=== PATIENT | female | born 1995 | race African-American/Black ===

== ENCOUNTER 2018-04-01 22:53 | Emergency (ER) | payer BC, SELFPAY ==
[2018-04-01 23:00] VITALS: BP 116/72; PULSE 107; RESP 18; TEMP 36.8; O2SAT 98
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
[2018-04-01] MEDS: Ibuprofen 600 MG TAB PO (23:24)
== END 2018-04-01 23:41 | disposition home or self-care (01) ==
PROVIDERS: Emergency Provider Emergency Medicine
DX: S09.90XA Unspecified injury of head, initial encounter (principal); W22.8XXA Striking against or struck by other objects, initial encounter; Y93.83 Activity, rough housing and horseplay; R51 Headache
CPT/HCPCS: 99283

== ENCOUNTER 2018-04-08 14:35 | Emergency (ER) | payer BC, SELFPAY ==
[2018-04-08 14:37] VITALS: BP 122/72; PULSE 98; RESP 18; TEMP 36.6; O2SAT 99
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
[2018-04-08 15:43] LABS: Abs Immature Grans 0.01 k/cumm (0.0-0.09); HCT 33.2 % (36.0-46.0); HGB 10.1 g/dL (12.0-15.5); Immature Grans % 0.1; Mean Corp. HGB Concentration 30.4 g/dL (32.0-36.0); Mean Platelet Volume 11.7 fL (8.0-11.0); RBC Distribution Width 16.4 % (11.7-14.6)
[2018-04-08 15:45] LABS: *AMPHETAMINES SCREEN URINE Negative (Negative); *BARBITURATES SCREEN URINE Negative (Negative); *BENZODIAZEPINES SCREEN URINE Negative (Negative); Cannabinoids THC POSITIVE (Negative); Cocaine Screen,Urine Negative (Negative); METHADONE URINE SCREEN Negative (Negative); OPIATES URINE SCREEN Negative (Negative)
[2018-04-08 15:46] LABS: Tricyclic Antidepressants Negative (Negative)
[2018-04-08 15:59] LABS: Acetaminophen < 2 ug/mL (10-30); Salicylate < 2.8 mg/dL (2.8-20.0)
[2018-04-08 16:04] LABS: ALT 14 U/L (12-78); AST 21 U/L (15-37); Albumin 4.3 g/dL (3.4-5.0); Alkaline Phosphatase 40 U/L (46-116); Anion Gap 9.8 mmol/L (3-11); BUN 14 mg/dL (7-18); Bilirubin, Total 1.6 mg/dL (0.2-1.0); CO2 20.2 mmol/L (21.0-32.0); CREATININE 1.05 mg/dL (0.55-1.02); Calcium 9.4 mg/dL (8.5-10.1); Chloride 105 mmol/L (98-107); Glucose 100 mg/dL (70-100); Magnesium 1.9 mg/dL (1.8-2.4); Potassium 3.6 mmol/L (3.5-5.1); Sodium 135 mmol/L (136-145); Total Protein 8.5 g/dL (6.4-8.2)
[2018-04-08 16:07] LABS: Absolute Basophil Count 0.04 k/cumm (0.0-0.2); Absolute Eosinophil Count 0.01 k/cumm (0.0-0.7); Absolute Lymphocyte Count 1.55 k/cumm (1.2-3.4); Absolute Monocyte Count 0.45 k/cumm (0.11-0.7); Absolute Neutrophil Count 6.02 k/cumm (1.2-6.7); Basophils % 0.5; Eosinophils % 0.1; Lymphocytes % 19.2; Mean Corpuscular Hemoglobin 20.2 pg (27.0-33.0); Mean Corpuscular Volume 66.5 fL (80-95); Monocytes % 5.6; Neutrophils % 74.5; Platelet Count 264 x1000/uL (130-400); RBC 4.99 m/cumm (4.00-5.20); White Blood Cell Count 8.08 k/cumm (4.4-10.8)
--- NOTE | 2018-04-08 16:14 | ERMH_ITS ---
Presenting issue: [] *How did they arrive here at ER and why did they come: [Clt arrived at the ER because she had a panic attack coupled with cutting behavior, which resulted in the clt having a number of superficial cuts going up the length of her left forearm.] Precipitating Factors: [] *Assessment of Safety SI / HI- (Address delusions if pertaining to the SI/ HI) [Clt denies any SI or HI. The clt appeared to have an almost borderline disassociation experience where she felt outside of herself when she did the cutting. She said that her depression started about a week ago and steadily got worse. She said that she came back to the college because of her boyfriend that she feels is unsupportive. Her other friends have left for other colleges leaving her with a feeling isolation. ] Disposition: [] *Behavior: [Cooperative] *Eye Contact: [Good] *Mood: [Pleasant] *Affect: [Normal ] *Appetite: [fair] *Sleep (trouble falling/staying asleep): [Clt did not complain about any issues with her sleep.] Plan: (please elaborate and include that physician is consulted with plan and/ or placement): [The clt and I discussed the clt's experience and I strongly recommended that she follow up with [facility] mental health services to help process the experience. Clt will refrain from any further cutting. The clt does have the [facility] Emergency number should the cutting impulses reemerge. ] Provisional Diagnosis:(only if required by physician): [] AXIS 5 Case Handover: Done with ED nurse (name): [] Date & Time [] Huddle: done with ED staff (for ?boarding? clients): [] Yes [] No Date /Time [] Referral for Case management: Has phone call for introduction been made [] Yes [] No Referral in EMR: Done and sent? [] Yes [] NO Clinicians Name and title and Signature: [] Make sure that you are photocopying and submitting this to [facility] records dept.to be scanned into chart
[2018-04-08 16:15] LABS: TSH (W/Ref FT4) 0.98 uIU/mL (0.358-3.74)
[2018-04-08 16:22] LABS: ETHANOL BLOOD < 3.0 mg/dL (<3)
[2018-04-08 16:31] LABS: Anisocytosis 2+; Diff Comment RBC Morph Reviewed; Hypochromasia 2+; Microcytosis 3+; Ovalocytes 2+
[2018-04-08 16:47] LABS: Bilirubin Small (Negative); Blood Moderate (Negative); Clarity Cloudy; Glucose Negative (Negative); Ketones 40 mg/dL (Negative); Leukocyte Esterase Large (Negative); Nitrite Negative (Negative); Specific Gravity 1.025 (1.005-1.025); Urobilinogen 0.2 EU/dL (Up TO 0.2); pH 6.5 (5-8)
[2018-04-08 17:02] LABS: Bacteria Many HPF (Negative); C & S Indicated? Yes; Casts Negative LPF (Negative); Crystals Negative HPF (Negative); Epithelial Cells Negative HPF (Negative); Mucus Negative (Negative); RBC >50 (0-2); WBC >50 HPF (0-5)
[2018-04-08 17:13] VITALS: BP 122/80; PULSE 70; RESP 18; TEMP 36.9; O2SAT 100
--- NOTE | 2018-04-18 12:30 | CMPROGNOTE_ITS ---
Care Management Progress Note 04/18/18-Pt was seen on 04/08/18 for cutting/self harm by VIANCA Zapata. ABBEY Whitmore is f/u on Pt's labs which shows a mild anemia. CM contacted Pt's PCP, Dr. Glendy Heck at [facility]. CM has faxed Lab reports to them.
== END 2018-04-08 17:15 | disposition home or self-care (01) ==
PROVIDERS: Emergency Provider Physician Assistant; PCP Physician Assistant
DX: F32.9 Major depressive disorder, single episode, unspecified (principal); X78.9XXA Intentional self-harm by unspecified sharp object, initial encounter
CPT/HCPCS: 80053; 80307; 81025; 87077; 99282; 80320; 80329; 81003; 81015; 83735; 84443; 85025; 87086; 87186

== ENCOUNTER 2018-07-07 17:04 | Emergency (ER) | payer BC, SELFPAY ==
[2018-07-07 17:10] VITALS: BP 123/75; PULSE 109; RESP 18; TEMP 37.2; O2SAT 96
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
[2018-07-07 17:46] LABS: Abs Immature Grans 0.01 k/cumm (0.0-0.09); Absolute Basophil Count 0.06 k/cumm (0.0-0.2); Absolute Eosinophil Count 0.02 k/cumm (0.0-0.7); Absolute Lymphocyte Count 1.81 k/cumm (1.2-3.4); Absolute Monocyte Count 0.47 k/cumm (0.11-0.7); Absolute Neutrophil Count 5.78 k/cumm (1.2-6.7); Basophils % 0.7; Eosinophils % 0.2; HCT 37.1 % (36.0-46.0); HGB 11.6 g/dL (12.0-15.5); Immature Grans % 0.1; Lymphocytes % 22.2; Mean Corp. HGB Concentration 31.3 g/dL (32.0-36.0); Mean Corpuscular Hemoglobin 20.9 pg (27.0-33.0); Mean Corpuscular Volume 66.8 fL (80-95); Mean Platelet Volume 11.4 fL (8.0-11.0); Monocytes % 5.8; RBC 5.55 m/cumm (4.00-5.20); White Blood Cell Count 8.15 k/cumm (4.4-10.8)
[2018-07-07 17:50] LABS: *AMPHETAMINES SCREEN URINE Negative (Negative); *BARBITURATES SCREEN URINE Negative (Negative); *BENZODIAZEPINES SCREEN URINE Negative (Negative); Cannabinoids THC POSITIVE (Negative); Cocaine Screen,Urine Negative (Negative); METHADONE URINE SCREEN Negative (Negative); OPIATES URINE SCREEN Negative (Negative); Tricyclic Antidepressants Negative (Negative)
[2018-07-07 18:00] LABS: ALT 19 U/L (12-78); AST 17 U/L (15-37); Albumin 4.3 g/dL (3.4-5.0); Alkaline Phosphatase 45 U/L (46-116); Anion Gap 15.9 mmol/L (3-11); BUN 9 mg/dL (7-18); Bilirubin, Total 1.8 mg/dL (0.2-1.0); CO2 21.1 mmol/L (21.0-32.0); CREATININE 0.97 mg/dL (0.55-1.02); Calcium 9.5 mg/dL (8.5-10.1); Chloride 102 mmol/L (98-107); Glucose 93 mg/dL (70-100); Platelet Count 262 x1000/uL (130-400); Potassium 3.6 mmol/L (3.5-5.1); Sodium 139 mmol/L (136-145); Total Protein 8.5 g/dL (6.4-8.2)
[2018-07-07 18:32] LABS: ETHANOL BLOOD < 3.0 mg/dL (<3)
[2018-07-07 18:36] LABS: Diff Comment RBC Morph Reviewed
[2018-07-07 18:37] LABS: Microcytosis 3+; Poikilocytes 2+
[2018-07-07 18:45] LABS: Acetaminophen < 2 ug/mL (10-30)
[2018-07-07 18:46] LABS: Salicylate < 2.8 mg/dL (2.8-20.0)
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
== END 2018-07-07 20:39 | disposition home or self-care (01) ==
PROVIDERS: Emergency Provider Emergency Medicine; PCP Physician Assistant
DX: T39.312A Poisoning by propionic acid derivatives, intentional self-harm, initial encounter (principal); F41.8 Other specified anxiety disorders
CPT/HCPCS: 36415; 80053; 80307; 81025; 99284; 80320; 80329; 85025